=== PATIENT | male | born 2000 | race African-American/Black ===

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

== ENCOUNTER 2020-08-14 19:35 | Emergency (ER) | payer OTHER ==
[~2020-08-14] VITALS: Ht 188 cm; Wt 108.0 kg
[2020-08-14 20:53] VITALS: BP 138/77
== END 2020-08-14 20:54 | disposition home or self-care (01) ==
LOC: ER 19:35
DX: S91.051A Open bite, right ankle, initial encounter (principal); W54.0XXA Bitten by dog, initial encounter; Y93.89 Activity, other specified; Y92.89 Other specified places as the place of occurrence of the external cause
CPT/HCPCS: 99283